=== PATIENT | female | born 1985 | race Caucasian/White ===

== ENCOUNTER 2024-01-21 08:40 | Emergency (ER) | payer MEDICARE, OTHER ==
[~2024-01-21] VITALS: Ht 162.6 cm; Wt 83.9 kg
[2024-01-21] MEDS ORDERED: BENZONATATE 100 MG CAPSULE PO ONE (09:06)
[2024-01-21 09:20] VITALS: TEMP 98.4
[2024-01-21 09:25] LABS: BASOPHILS # (AUTO) 0.1 K/uL (0.0-0.2); BASOPHILS % (AUTO) 1.2 % (0.0-2.0); EOSINOPHILS # (AUTO) 0.1 K/uL (0.0-0.7); EOSINOPHILS % (AUTO) 2.3 % (0.0-6.0); HEMATOCRIT 28 % (33-45); HEMOGLOBIN 8.4 g/dL (11.5-14.8); LYMPHOCYTES # (AUTO) 1.5 K/uL (0.8-4.8); LYMPHOCYTES % (AUTO) 31.4 % (20.0-44.0); MEAN CORPUSCULAR HEMOGLOBIN 19 PG (26.0-33.0); MEAN CORPUSCULAR HGB CONC 30 g/dl (31.0-36.0); MEAN CORPUSCULAR VOLUME 62 fL (82-100); MONOCYTES # (AUTO) 0.7 K/uL (0.1-1.30); MONOCYTES % (AUTO) 13.5 % (2.0-12.0); NEUTROPHILS # (AUTO) 2.5 K/uL (1.8-8.9); NEUTROPHILS % (AUTO) 51.6 % (43.0-81.0); PLATELET COUNT (AUTO) 353 K/uL (150-450); RED BLOOD CELL COUNT(AUTO) 4.46 MIL/uL (4.0-5.2); RED CELL DISTRIBUTION WIDTH 18.3 % (11.5-15.0); WHITE BLOOD COUNT (AUTO) 4.9 K/uL (4.3-11.0)
[2024-01-21] MEDS: BENZONATATE 100 MG CAPSULE PO PRN (09:28)
[2024-01-21] MEDS: IV NS 0.9% 1,000 ML BAG IV ONE (09:28)
[2024-01-21 09:38] LABS: CALCIUM, SERUM 8.6 mg/dL (8.5-10.1); CREATININE 0.5 mg/dL (0.6-1.3); POTASSIUM 3.3 mmol/L (3.5-5.1)
[2024-01-21 09:41] LABS: ALBUMIN 3.6 g/dL (3.4-5.0); BILIRUBIN,DIRECT 0.1 mg/dL (0.0-0.2); BILIRUBIN,TOTAL 0.4 mg/dL (0.2-1.0); TOTAL PROTEIN, SERUM 7.9 g/dL (6.4-8.2)
[2024-01-21] MEDS ORDERED: BENZ-13 PO (10:08)
[2024-01-21] MEDS ORDERED: AMOX-430 PO (10:08)
[2024-01-21 12:20] VITALS: BP 118/67; O2SAT 97
== END 2024-01-21 12:15 | disposition home or self-care (01) ==
LOC: ER 08:46
DX: R07.89 Other chest pain (principal); J06.9 Acute upper respiratory infection, unspecified; R05.9 Cough, unspecified; R09.81 Nasal congestion; D64.9 Anemia, unspecified; R59.0 Localized enlarged lymph nodes; R19.7 Diarrhea, unspecified; E87.6 Hypokalemia; R74.01 Elevation of levels of liver transaminase levels; G61.81 Chronic inflammatory demyelinating polyneuritis
CPT/HCPCS: 36415; 71045-TC; 80048-TC; 80076-TC; 83690-TC; 84484-TC; 85025-TC; J7030